=== PATIENT | female | born 1945 | race Caucasian/White ===

== ENCOUNTER 2021-08-21 08:21 | Day surgery (SDC) | payer OTHER, MEDICARE ==
[2021-08-16 11:37] VITALS: BMI 21.6
[2021-08-21 12:07] VITALS: TEMP 97.7
[2021-08-21 12:12] VITALS: BP 125/69; PULSE 74
== END 2021-08-21 12:10 | disposition home or self-care (01) ==
LOC: FASU 08:21
PROVIDERS: ATTEND Ophthalmology
PROC: 08RK3JZ Replacement of Left Lens with Synthetic Substitute, Percutaneous Approach (ICD-10-PCS; principal; 2021-08-21)
DX: H26.9 Unspecified cataract (principal)

== ENCOUNTER 2021-08-28 08:14 | Day surgery (SDC) | payer OTHER, MEDICARE ==
[2021-08-16 11:56] VITALS: BMI 21.6
[2021-08-28] MEDS: TROPICAMIDE 1% OPHTH SOLN 15 ML BOTTLE OD SCH ×4 (07:30→08:41)
[2021-08-28] MEDS: PHENYLEPHRINE 2.5% OPHTH SOLN 15 ML BOTTLE OD SCH ×4 (07:30→08:41)
[2021-08-28] MEDS: OFLOXACIN 0.3% OPHTHALMIC SOLUTION 5 ML BOTTLE OD SCH ×4 (07:30→08:41)
[2021-08-28] MEDS: KETOROLAC TROMETHAMINE 0.5% EYE DROP 1 DROP DROPS OD SCH ×4 (07:30→08:41)
[2021-08-28] MEDS: CYCLOPENTOLATE HCL 1% OPHTH SOLN 2 ML BOTTLE OD SCH ×4 (07:30→08:41)
[2021-08-28] MEDS ORDERED: TROPICAMIDE 1% OPHTH SOLN 15 ML BOTTLE ONE (08:25)
[2021-08-28] MEDS ORDERED: BACITRACIN/POLYMYXIN OPH OINT 3.5 GM TUBE ONE (09:19)
[2021-08-28] MEDS ORDERED: BETAXOLOL HCL 0.25% OPHTHALMIC 10 ML DROPSBTL ONE (09:19)
[2021-08-28] MEDS ORDERED: TETRACAINE 0.5% OPHTH SOLN 2 ML BOTTLE ONE (09:19)
[2021-08-28] MEDS ORDERED: EPI-SHUGARCAINE (EPINEPHRINE 0.025% & LIDOCAINE-PF 0.75%) 4ML ONE (09:19)
[2021-08-28] MEDS ORDERED: POVIDONE-IODINE 5% OPHTHALMIC PREP 30 ML SOLUTION ONE (09:19)
[2021-08-28] MEDS ORDERED: NEO/POLYMYX B SULF/DEXAMETH OPHTHALMIC 5ML BOTTLE ONE (09:20)
[2021-08-28] MEDS ORDERED: MIDAZOLAM HCL 2 MG/2 ML SINGLE DOSE VIAL ONE ×2 (09:46→10:34)
[2021-08-28] MEDS ORDERED: ACETAMINOPHEN 325 MG TABLET (FP) PO PRN (11:02)
[2021-08-28 11:09] VITALS: TEMP 97.9
[2021-08-28 12:42] VITALS: BP 121/64; PULSE 66
== END 2021-08-28 11:35 | disposition home or self-care (01) ==
LOC: FASU 08:14
PROVIDERS: ATTEND Ophthalmology
PROC: 08RJ3JZ Replacement of Right Lens with Synthetic Substitute, Percutaneous Approach (ICD-10-PCS; principal; 2021-08-28 10:00)
DX: H26.9 Unspecified cataract (principal)